=== PATIENT | female | born 1975 | race Caucasian/White ===

== ENCOUNTER 2017-11-06 20:29 | Emergency (ER) | payer OTHER ==
[~2017-11-06] VITALS: Ht 160 cm; Wt 140.6 kg
--- OUTSIDE RECORDS SUMMARY | ~2017-11-06 | XMS | Clinical Summary ---
Demographics + + + | Address | [address] | | | [place] [address] | + + + | Home Phone | | + + + | Preferred Language | Unknown | + + + | Marital Status | Single | + + + | Synagogue Affiliation | Unknown | + + + | Race | Unknown | + + + | Ethnic Group | Unknown | + + + Author + + + | Author | [facility] | | | and [place] | + + + | Organization | [facility] | | | and [place] | + + + | Address | Unknown | + + + | Phone | Unavailable | + + + Support + + + + + | Name | Relationship | Address | Phone | + + + + + | Rubio Sigala | ECON | [address] | | | | | [place], | | | | | [place] [address] | | + + + + + Care Team Providers + +------+ + | Care Leadite Man Name | Role | Phone | + +------+ + | Vijay Manzano MD | PP | | + +------+ + Allergies No Known Allergies Current Medications + + +-------+---------+------+------+-------+ | Prescription | Sig. | Disp. | Refills | Star | End | Statu | | | | | | t | Date | s | | | | | | Date | | | + + +-------+---------+------+------+-------+ | fluticasone | Inhale 1 puff into | | | | | Activ | | (FLOVENT HFA) 110 | the lungs 2 times | | | | | e | | mcg/puff inhaler | daily. | | | | | | + + +-------+---------+------+------+-------+ | albuterol | Inhale 2 puffs into | | | | | Activ | | (VENTOLIN HFA) 90 | the lungs every 6 | | | | | e | | mcg/puff inhaler | hours as needed. | | | | | | + + +-------+---------+------+------+-------+ | chlorpheniramine | Take 4 mg by mouth | | | | | Activ | | (CHLOR-TRIMETON) 4 | every 6 hours as | | | | | e | | MG tablet | needed for | | | | | | | | Allergies. | | | | | | + + +-------+---------+------+------+-------+ | diphenhydrAMINE | Take 25 mg by mouth | | | | | Activ | | (BENADRYL) 25 mg | every 6 hours as | | | | | e | | tablet | needed for Itching. | | | | | | + + +-------+---------+------+------+-------+ | gabapentin | Take 300 mg by mouth | | | | | Activ | | (NEURONTIN) 300 mg | 3 times daily. | | | | | e | | capsule | | | | | | | + + +-------+---------+------+------+-------+ | meloxicam (MOBIC) | Take 15 mg by mouth | | | | | Activ | | 15 mg tablet | Daily. | | | | | e | + + +-------+---------+------+------+-------+ Active Problems + + + | Problem | Noted Date | + + + | Paresthesias/numbness | 10/20/2015 | + + + Social History + +-------+ +--------+------+ | Tobacco Use | Types | Packs/Day | Years | Date | | | | | Used | | + +-------+ +--------+------+ | Never Smoker | | | | | + +-------+ +--------+------+ + + + | Sex Assigned at | Date Recorded | | | | + + + | Not on file | | + + + Last Filed Vital Signs + + + + | Vital Sign | Reading | Time Taken | + + + + | Blood Pressure | 141/77 | 10/20/2015 0959 PDT | + + + + | Pulse | 80 | 10/20/2015958 PDT | + + + + | Temperature | - | - | + + + + | Respiratory Rate | 16 | 09/10/2015931 PDT | + + + + | Oxygen Saturation | 95% | 09/10/2015931 PDT | + + + + | Inhaled Oxygen | - | - | | Concentration | | | + + + + | Weight | 138.5 kg (305 lb 6.4 | 10/20/2015958 PDT | | | oz) | | + + + + | Height | 160 cm (5' 3") | 10/20/2015958 PDT | + + + + | Body Mass Index | 54.1 | 10/20/2015958 PDT | + + + + Plan of Treatment + + + + + | Health Maintenance | Due Date | Last Done | Comments | + + + + + | Vaccine: | | | | | Dtap/Tdap/Td (1 - | 2 | | | | Tdap) | | | | + + + + + | Cervical Cancer | | | | | Screening (Pap) | 3 | | | + + + + + | Vaccine: Influenza | | | | | (#1) | 8 | | | + + + + + Results Not on filefrom Last 3 Months Insurance + +--------+ +--------+ +---------+ | Payer | Benefi | Subscriber | Type | Phone | Address | | | t Plan | ID | | | | | | / | | | | | | | Group | | | | | + +--------+ +--------+ +---------+ | [employer] | [employer] | [id number] | Medica | [phone] | | MEDICAID HMO | HEALTH | | id | [id number] | | | | [place] | | | | | | | [place] | | | | | + +--------+ +--------+ +---------+ + +--------+ +--------+ + + | Guarantor Name | Accoun | Relation to | Date | Phone | Billing Address | | | t Type | Patient | of | | | | | | | | | | + +--------+ +--------+ + + | NORAH SIGALA | Person | Self [birth year] Home: | [address] | | | al/Fam | | 1975 | [phone] | [place] [address] | | | [place] | | [phone] | | + +--------+ +--------+ + +
--- OUTSIDE RECORDS SUMMARY | ~2017-11-06 | XMS | Clinical Summary ---
Demographics + + + | Address | [address] | | | [place] [address] | + + + | Home Phone | | + + + | Preferred Language | Unknown | + + + | Marital Status | Single | + + + | Religion Affiliation | Unknown | + + + | Race | Unknown | + + + | Ethnic Group | Unknown | + + + Author + + + | Author | [facility] | | | and [place] | + + + | Organization | [facility] | | | and [place] | [...] [place], | | | | | [place] [address] | | + + + + + Care Team Providers + +------+ + | Care Phlebotomy Supervisor Name | Role | Phone | + [...] | [employer] | MOD[employer] | [id number] | Medica | [phone] | | MEDICAID HMO | HEALTH [...] | [birth year] | Home: | [address] | | | al/Fam | | 1975 | [phone] | [place] [address] | | | [place] | | | [phone] | | + +--------+ +--------+ + +
[~2017-11-06 20:29] MED LIST: ALLERGY10 M1 PO; BENADRYL25 MG PO; CEPHALEXIN500 MG PO; CIPROFLOXACIN500 MG PO; CLARITIN10 MG PO; FLOVENT DISKU100 MCG INH; FLOVENT HFA12 G1 INH; FLOVENT HFA12 GM INH; GABAPENTIN300 MG PO; HYDROCODON-ACE1 EA10 PO; IBUPROFEN800 MG PO; IRON18 MG PO; IRON325 M1 PO; NAPROSYN500 MG PO; NAPROXEN375 MG PO; NAPROXEN500 MG PO; NITROFURANTOIN50 MG PO; NORCO 10-325 T1 EACH PO; NORCO 5-325 TA1 EACH PO; OXYCODONE HCL5 MG PO; PROAIR HFA8.5 GM IH; SF 5000 PLUS51 GM MT; TYLENOL EXTRA500 MG PO; VENTOLIN HFA18 GM INH; XARELTO10 MG PO
[2017-11-06] MEDS ORDERED: MELOXICAM15 MG PO (20:48)
[2017-11-06] MEDS ORDERED: ACETAMINOPHEN-1 EAC1 PO (23:20)
== END 2017-11-06 23:36 | disposition home or self-care (01) ==
LOC: ED 20:29
DX: D69.0 Allergic purpura (principal); Z88.5 Allergy status to narcotic agent; Z79.899 Other long term (current) drug therapy
CPT/HCPCS: 80053; 81001; 85025; 99283

== ENCOUNTER 2018-07-12 07:50 | Day surgery (SDC) | payer OTHER ==
[~2018-07-12] VITALS: Ht 160 cm; Wt 138.3 kg
[~2018-07-12 07:50] MED LIST changes: +ACETAMINOPHEN-1 EAC1 PO; +MELOXICAM15 MG PO
--- NOTE | 2018-07-12 10:48 | NUR ---
07/12/18 1048 Orlando Maradiaga RESPONDS TO TAP AND VOICE AND NOW RATES PAIN 06/28.
--- NOTE | 2018-07-12 11:33 | NUR ---
PT IS BACK TO FROM PACU. SHE IS AWAKE AND TALKING WITH STAFF. SHE IS SLIGHTLY NAUSEATED, SMELLING AN ALCOHOL PREP PAD UPON ARRIVAL. SHE TOLERATES SIPS OF WATER. REPORTING THAT HER PAIN IS IMPROVING, RATING 5/10. SHE STATES THAT A 2/10 WOULD BE A TOLERABLE LEVEL FOR HER. CALL LIGHT IS WITHIN REACH. NO ADDITIONAL NEEDS AT THIS TIME. WILL CONTINUE TO MONITOR.
--- NOTE | 2018-07-12 11:49 | NUR ---
PT STARTS TO FALL ASLEEP AND WITHOUT HER CPAP HER O2 SAT DROPS. SHE IS PUT ON 2L VIA NC WHILE SHE IS RESTING. PT IS EDUCATED THAT SHE WILL NEED TO BE MORE AWAKE PRIOR TO DC. SHE STILL DESAT'S ON 2L VIA NC. RESPIRATORY THERAPY IS CALLED AND ASKED TO BRING A CPAP MACHINE THAT THE PT CAN USE WHILE SHE IS RECOVERING.
--- NOTE | 2018-07-12 12:35 | NUR ---
PT WOULD LIKE SOMETHING FOR PAIN. SHE IS EDUCATED THAT IN ORDER TO GET ORAL PAIN MEDS SHE NEEDS TO EAT A LITTLE SOMETHING, SHE IS AGREEABLE TO THIS AND REQUESTS CHOCOLATE PUDDING. WILL CONTINUE TO MONITOR.
--- NOTE | 2018-07-12 13:27 | NUR ---
HOURLY VITAL SIGNS ARE POSTPONED. PT IS EATING SANDWICH.
--- NOTE | 2018-07-12 14:28 | NUR ---
PT REPORTS THAT HER PAIN IS IMPROVING SINCE EATING A SANDWICH AND GETTING FRESH ICE IN HER ICE PACKS. SHE IS AGREEABLE TO GET UP AND TRY AND USE THE RESTROOM. IF SHE IS ABLE TO VOID, THE PT IS EDUCATED THAT SHE WILL BE ABLE TO GO HOME IF SHE FEELS READY TO DO SO.
--- NOTE | 2018-07-12 14:40 | NUR ---
PT IS HELPED UP OOB WITH STANDBY ASSIST TO THE BATHROOM. SHE IS ABLE TO VOID 225ML'S IN THE HAT. SHE IS AGREEABLE TO WALKING AROUND THE HALLS FOR A FEW TO HELP WORKOUT SOME GAS FROM SURGERY. SHE MAKES A LOOP AROUND THE DEPARTMENT. SHE IS HELPED BACK INTO BED. SHE REPORTS THAT HER SHOULD BE COMING THIS WAY BETWEEN 1630 AND 1700.
--- NOTE | 2018-07-12 15:48 | NUR ---
PT IS DOING WELL, REPORTING THAT HER PAIN IS A 1/10 WITH ICE PACKS. SHE WOULD LIKE HER IV REMOVED, THIS RN IS AGREEABLE SINCE SHE IS TOLERATING ORALS WELL. NO ADDITIONAL NEEDS AT THIS TIME. WILL CONTINUE TO [place].
--- NOTE | 2018-07-12 16:22 | NUR ---
PT IS UP TO THE BATHROOM. SHE IS ABLE TO PUT HER PANTS ON. SHE IS EDUCATED ON HOW TO DRESS HERSELF AFTER SHE IS DONE USING THE RESTROOM. AT THIS TIME THE PATIENT HAS MET ALL DC CRITERIA, WE ARE JUST WAITING FOR HER TO GET HERE.
--- NOTE | 2018-07-12 17:09 | NUR ---
DC INSTRUCTIONS ARE GIVEN TO THE PT VERBALLY. SHE VERBALIZES UNDERSTADNING. QUESTIONS ARE ASKED AND ANSWERED. PT IS WAITING FOR HER DAUGHTER AND TO ARRIVE FOR A RIDE HOME.
--- NOTE | 2018-07-12 17:24 | NUR ---
PT'S DAUGHTER ARRIVES TO TAKE PT HOME. PT IS TAKEN TO VEHICLE IN A WC, SHE IS ABLE TO TRANSFER HERSELF FROM THE WC TO THE CAR.
--- NOTE | 2018-07-13 06:45 | OR ---
[facility] [address] [place], [place] [address] Signed DATE OF OPERATION: 07/12/2018 SURGEON: Evens Pacheco MD PREOPERATIVE DIAGNOSES: 1. Chronic cholecystitis. 2. Biliary colic. POSTOPERATIVE DIAGNOSES: 1. Chronic cholecystitis. 2. Biliary colic. 3. Cholesterolosis. PROCEDURE: Laparoscopic cholecystectomy with intraoperative cholangiogram. ESTIMATED BLOOD LOSS: None. FINDINGS: Norah's intraoperative cholangiogram was unremarkable. We could see the cholesterolosis from the outside of the gallbladder and it was only worse and we opened the gallbladder on the back table. INDICATIONS: Norah is a 43-year-old, obese female, whose hemoglobin A1c is running 6.7. She had a lot of trouble in the last several years with epigastric abdominal pain radiating through to her back. She notes it is different than her chronic back pain. Her ultrasound was negative about 4 years ago. Her symptoms were escalating and getting to the point she could hardly eat. 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 She went to an upper GI small-bowel follow through with her primary care provider. This was unremarkable. Consequently, she was sent for a HIDA scan. Her gallbladder ejection fraction was hyperkinetic at 97%. Injection of the CCK re-produced her symptoms. She said it was quite miserable. Consequently, she was asked to see me as a general surgeon. I met with Norah in my office. I gave her a [employer] brochure on the gallbladder. We reviewed the location and function of the gallbladder. We reviewed laparoscopic versus open cholecystectomy. She understands expected intraop and postop course. There is risk to surgery including, but not limited to bleeding, infection, scarring, change in contour of the skin, damage to bowel, damage to main bile duct, incisional hernias and other unforeseen comorbidities. She had expressed Electronically Signed By: EVENS PACHECO MD 07/13/18 0645 PATIENT NAME: NORAH SIGALA OPERATIVE REPORT DATE OF : 71 REPORT #: [id number] PHYSICIAN: EVENS PACHECO MD PCP: TAVON MANZANO MD REPORT IS CONFIDENTIAL AND NOT TO BE RELEASED WITHOUT AUTHORIZATION [facility] [address] [place], [place] [address] Signed understanding and wished to proceed. PROCEDURE NOTE: I met with Norah in our preop area. After this, she was taken into our operating room and placed in the supine position under general endotracheal tube anesthesia. She was given preoperative antibiotics along with subcutaneous heparin. SCDs were utilized. She was then prepped and draped in the usual sterile fashion. All trocars were placed in usual positions under direct visualization of camera without difficulty. Pictures were taken throughout for photodocumentation. She clearly has a fatty liver as well. The gallbladder was grasped and elevated in the right upper quadrant. The triangle of Calot was then dissected free. A clip was placed across the cystic artery and it was divided. The intraoperative cholangiocatheter was inserted into the cystic duct and intraoperative cholangiogram was then performed. We used 3 clips sequentially across the entire width of the cystic duct stump to secure the cystic duct stump. The gallbladder was then removed from the gallbladder fossa with the help of the cautery and placed into an EndoCatch bag. We used our laparoscopic suturing device to pass 0 Vicryl suture on either side of the fascia at the subxiphoid trocar site. This was tied down to close this fascia primarily. After this, all the gas was allowed to escape and all the trocars were removed along with the gallbladder. The gallbladder had been opened on the back table by our circulating nurse and placed in formalin. The fascia of the supraumbilical trocar site was closed with interrupted simple and [id number] 0 Vicryl sutures. Local anesthetic was injected into all trocar sites. Each trocar site was irrigated and suctioned out until clear. The skin and dermis of each trocar site were closed with interrupted 3-0 subcuticular Monocryl sutures. We used jazmin at the supraumbilical trocar site and the right most lateral trocar site to help bring the skin together. Dry gauze and tape were then applied to all incisions. Norah was then awakened from anesthesia, extubated in the OR, and taken to recovery room in stable condition. Evens Pacheco MD ALB/MODL /[id number] cc: Tavon Manzano MD Electronically Signed By: EVENS PACHECO MD 07/13/18 0645 PATIENT NAME: NORAH SIGALA OPERATIVE REPORT DATE OF : 71 REPORT #: [id number] PHYSICIAN: EVENS PACHECO MD PCP: TAVON MANZANO MD REPORT IS CONFIDENTIAL AND NOT TO BE RELEASED WITHOUT AUTHORIZATION [address] [place], [place] [address] Signed Evens Pacheco MD Copies: TAVON MANZANO MD, ANDREW L MD ~ Electronically Signed By: EVENS PACHECO MD 07/13/18 0645 PATIENT NAME: NORAH SIGALA OPERATIVE REPORT DATE OF : 71 REPORT #: [id number] PHYSICIAN: EVENS PACHECO MD PCP: TAVON MANZANO MD REPORT IS CONFIDENTIAL AND NOT TO BE RELEASED WITHOUT AUTHORIZATION
== END 2018-07-12 17:20 | disposition home or self-care (01) ==
LOC: DS 07:50
PROVIDERS: Colon & Rectal Surgery
PROC: BF13YZZ Fluoroscopy of Gallbladder and Bile Ducts using Other Contrast (ICD-10-PCS; 2018-07-12)
PROC: 0FT44ZZ Resection of Gallbladder, Percutaneous Endoscopic Approach (ICD-10-PCS; principal; 2018-07-12 09:00)
DX: K81.1 Chronic cholecystitis (principal); J45.909 Unspecified asthma, uncomplicated; G47.33 Obstructive sleep apnea (adult) (pediatric); F41.9 Anxiety disorder, unspecified; K21.9 Gastro-esophageal reflux disease without esophagitis; E66.9 Obesity, unspecified; Z88.5 Allergy status to narcotic agent; Z88.8 Allergy status to other drugs, medicaments and biological substances; Z79.899 Other long term (current) drug therapy; Z68.43 Body mass index [BMI] 50.0-59.9, adult
CPT/HCPCS: 00790; 74300; 94660; J0131; J0690; J1100; J1644; J1885; J2250; J2405; J2704; J3010; J7120; Q9967

== ENCOUNTER 2020-02-25 03:11 | Emergency (ER) | payer OTHER ==
[~2020-02-25] VITALS: Ht 160 cm; Wt 139.3 kg
[~2020-02-25 03:11] MED LIST changes: +KEFLEX500 MG PO; +PYRIDIUM200 MG PO
[2020-02-25] MEDS ORDERED: ACETAMINOPHEN-1 EAC1 PO (04:09)
[2020-02-25] MEDS ORDERED: DICLOFENAC SODI75 MG PO (04:09)
[2020-02-25] MEDS ORDERED: CYCLOBENZAPRINE10 MG PO (04:09)
== END 2020-02-25 04:17 | disposition home or self-care (01) ==
LOC: ED 03:11
DX: M25.511 Pain in right shoulder (principal); J45.909 Unspecified asthma, uncomplicated; G47.30 Sleep apnea, unspecified; Z88.5 Allergy status to narcotic agent; Z79.899 Other long term (current) drug therapy
CPT/HCPCS: 73030; 99283-25